=== PATIENT | male | born 1930 | race Caucasian/White ===

== ENCOUNTER 2016-09-03 03:07 | Emergency (ER) | payer MEDICARE ==
[2015-10-26 12:42] VITALS: BMI 27.4
[~2016-09-03 03:07] MED LIST: ANTIVERT50 MG PO; ASPIRIN 81 MG E81 MG PO; ASPIRIN325 MG PO; ATROVENT 0.02%2.5 ML UPD; BAYER CHEWABLE81 MG PO; BISAC-EVAC10 MG/SUPP RC; BUMEX2 MG PO; BYSTOLIC5 MG PO; CARDIZEM120 MG PO; CELEXA10 MG PO; CORDARONE200 MG PO; COREG 3.1253.125 MG PO; COUMADIN2 MG; COUMADIN2.5 MG PO; COUMADIN3 MG PO; COUMADIN4 MG; COUMADIN7.5 MG PO; CYMBALTA60 MG PO; ELAVIL25 MG PO; FERROUS SULFAT325 MG PO; FIBERCON625 MG PO; FISH OIL 1,0001 CA1 PO; FLORANEX / LACT1 TAB PO; FUROSEMIDE20 MG PO; GLUCAGON1 MG/KIT IM; GLUCAGON1 MG/KIT SQ; HUMALOG 30100 UNITS/; HUMALOG 30100 UNITS/ SC; INSTA-GLUCOSE31 GM; ISOSORBIDE MONO30 M1 PO; K-DUR20 MEQ PO; K-TAB10 MEQ PO; KLOR-CON20 MEQ/PKT PO; LANTUS SOL100 UNIT/1; LANTUS SOL100 UNIT/1 SQ; LASIX 40 M40 MG/5 ML IV; LASIX40 MG PO; LIPITOR10 MG PO; LIPITOR20 MG PO; LIPITOR80 MG PO; LISINOPRIL10 MG PO; LOMOTIL TABLET1 TAB PO; LOVENOX30 MG/0.3 SQ; MACRODANTIN100 MG PO; MAXIPIME INJ2 GM IV; MEDI-NATURAL8.6 MG PO; MICRO-K10 MEQ PO; MIRALAX17 GM PO; NORCO 10/325 TA1 TA1 PO; ONDANSETRON4 MG/2 M3 IV; PACERONE100 MG; PERCOCET 10/3251 TA1 PO; PROTONIX40 MG PO; PULMICORT0.5 MG/21 INH; RISPERDAL2 MG PO; SALINE FLUSH10 ML IV; SEROQUEL200 MG PO; SODIUM CL 0.91000 ML IVPB; TYLENOL ARTHRI650 MG PO; ZINC SULFATE 2220 MG PO
[2016-09-03 03:55] LABS: BASOPHILS 0.3 % (0-2); EOSINOPHILS 6.8 % (0-7); HEMATOCRIT 34.2 % (42.0-54.0); HEMOGLOBIN 10.9 g/dL (13.5-17.5); IMMATURE GRANULOCYTES 0.3 % (0-5); MCH 29.2 pg (26.0-34.0); MCHC 31.9 g/dL (31.0-37.0); MCV 91.7 fL (80.0-100.0); MEAN PLATELET VOLUME 9.6 fL (7.4-10.4); MONOCYTES 11.4 % (2-11); NEUTROPHILS 55.2 % (40-80); PLATELET COUNT 170 10x3/uL (130-400); RBC 3.73 10x6/uL (4.20-6.10); RDW 13.4 % (11.5-14.5); WBC 6.6 10x3/uL (4.8-10.8)
[2016-09-03 04:09] LABS: ALBUMIN 3.1 g/dL (3.4-5.0); ALKALINE PHOSPHATASE 97 U/L (46-116); ALT (SGPT) 24 U/L (10-68); CALC OSMOLALITY 278 mosm/kg (275-300); CALCIUM 8.5 mg/dL (8.5-10.1); CARBON DIOXIDE 29.2 mmol/L (21.0-32.0); CHLORIDE - SERUM 100 mmol/L (98-107); CREATININE - SERUM 1.5 mg/dL (0.6-1.3); GLUCOSE 121 mg/dL (74-106); PROTEIN - SERUM 7.4 g/dL (6.4-8.2); SODIUM 136 mmol/L (136-145); UREA NITROGEN 28 mg/dL (7-18); eGFR NON AFRICAN AMERICAN 47 mL/min (90-120)
[2016-09-03 04:20] LABS: CHOL - HDL RATIO 2.7 ratio (2.3-4.9); CHOLESTEROL, TOTAL 118 mg/dL (0-200); CKMB 1.9 U/L (0.0-3.6); CREATINE KINASE 68 UL (21-232); HDL CHOLESTEROL 44 mg/dL (32-96); LDL CHOLESTEROL 65 mg/dL (0-100); LDL-HDL RATIO 1.5 ratio (1.5-3.5); PRO BNP 2394 pg/mL (0-450); TRIGLYCERIDE 48 mg/dL (30-200); TROPONIN-I 0.019 ng/mL (0.000-0.060)
== END 2016-09-03 05:00 | disposition home or self-care (01) ==
LOC: D.ER 03:07
PROVIDERS: Emergency Medicine
DX: I20.8 Other forms of angina pectoris (principal); I25.10 Atherosclerotic heart disease of native coronary artery without angina pectoris; I10 Essential (primary) hypertension; I44.30 Unspecified atrioventricular block; I45.4 Nonspecific intraventricular block

== ENCOUNTER → 2017-02-26 13:50 | Outpatient (CLI) | payer MEDICARE ==
[2015-10-26 12:42] VITALS: BMI 27.4
== END | disposition home or self-care (01) ==
LOC: D.US 13:50
DX: I65.23 Occlusion and stenosis of bilateral carotid arteries (principal)

== ENCOUNTER → 2018-02-16 13:27 | Outpatient (CLI) | payer MEDICARE ==
[2015-10-26 12:42] VITALS: BMI 27.4
== END | disposition home or self-care (01) ==
LOC: D.US 13:27
DX: I65.23 Occlusion and stenosis of bilateral carotid arteries (principal)

== ENCOUNTER 2018-05-14 17:36 | Inpatient (IN) | payer MEDICARE ==
[~2018-05-14] VITALS: Ht 170.2 cm; Wt 78.1 kg
[2018-05-14] VITALS (8 sets, daily range): BP systolic 141–160; BP diastolic 75–88; BMI 28.5
[2018-05-14 18:51] LABS: BASOPHILS 0.4 % (0-2); EOSINOPHILS 3.3 % (0-7); HEMATOCRIT 38.9 % (42.0-54.0); HEMOGLOBIN 13.2 g/dL (13.5-17.5); IMMATURE GRANULOCYTES 0.1 % (0-5); LYMPHOCYTES 17.8 % (15-50); MCHC 33.9 g/dL (31.0-37.0); MCV 91.3 fL (80.0-100.0); MEAN PLATELET VOLUME 10.7 fL (7.4-10.4); MONOCYTES 7.3 % (2-11); NEUTROPHILS 71.1 % (40-80); PLATELET COUNT 174 10x3/uL (130-400); RBC 4.26 10x6/uL (4.20-6.10); RDW 12.7 % (11.5-14.5); WBC 7.4 10x3/uL (4.8-10.8)
[2018-05-14] MEDS ORDERED: LOPRESSOR25 MG PO (18:56)
[2018-05-14] MEDS ORDERED: HYDROCHLOROTHIA25 MG PO (18:57)
[2018-05-14] MEDS ORDERED: LEVOXYL50 MCG PO (18:58)
--- NOTE | 2018-05-14 19:01 | NUR ---
HAND-OFF REPORT GIVEN TO TREY ANTONIO.
[2018-05-14 19:27] LABS: APTT 28.4 SECONDS (22.8-39.4); INR 1.05 (0.85-1.17); PROTIME 13.2 SECONDS (11.6-15.0)
[2018-05-14 19:37] LABS: ALBUMIN 3.5 g/dL (3.4-5.0); ALKALINE PHOSPHATASE 105 U/L (46-116); ALT (SGPT) 28 U/L (10-68); BILIRUBIN - TOTAL 0.66 mg/dL (0.2-1.3); CALC OSMOLALITY 280 mosm/kg (275-300); CALCIUM 8.8 mg/dL (8.5-10.1); CARBON DIOXIDE 26.5 mmol/L (21.0-32.0); CHLORIDE - SERUM 96 mmol/L (98-107); CREATININE - SERUM 1.7 mg/dL (0.6-1.3); POTASSIUM - SERUM 3.9 mmol/L (3.5-5.1); PROTEIN - SERUM 7.9 g/dL (6.4-8.2); SODIUM 135 mmol/L (136-145); UREA NITROGEN 25 mg/dL (7-18); eGFR NON AFRICAN AMERICAN 41 mL/min (90-120)
[2018-05-14 19:38] LABS: GLUCOSE 229 mg/dL (74-106)
[2018-05-14 19:49] LABS: CKMB 3.1 U/L (0.0-3.6); CREATINE KINASE 92 UL (21-232); MAGNESIUM - SERUM 1.6 mg/dL (1.8-2.4); THYROID STIMULATING HORMONE 4.99 uIU/mL (0.36-3.74); TROPONIN-I 0.023 ng/mL (0.000-0.060)
--- NOTE | 2018-05-14 21:32 | NUR ---
PT ARRIVED TO UNIT VIA STRETCHER ACCOMPANIED BY ER STAFF. TRANSFERRED TO BED WITHOUT DIFFICULTY. VERY [place]. BENJIE. AAOX2. CONFUSED ABOUT SITUATION. ORIENTED TO ROOM, NURSE, AND CALL ZUÑIGA SYSTEM. ASSESSMENT COMPLETE. SEE FLOWSHEET FOR DETAILS. BED ALARM ON. ALL OTHER SAFETY MEASURES IN PLACE. CBIR.
--- NOTE | 2018-05-14 23:43 | NUR ---
PT ASLEEP. NO SS OF DISTRESS. NO CHANGES IN CONDITION. REPOSITIONS SELF. SAFETY MEASURES IN PLACE. CBIR.
[2018-05-15] VITALS (24 sets, daily range): BP systolic 134–165; BP diastolic 62–104; Ht 170.2 cm; Wt 78.1 kg
--- NOTE | 2018-05-15 00:59 | NUR ---
REQUESTED URINAL. 150 CC. TOLERATED WELL.
[2018-05-15 03:07] LABS: BASOPHILS 0.2 % (0-2); EOSINOPHILS 0.1 % (0-7); HEMATOCRIT 40.6 % (42.0-54.0); HEMOGLOBIN 13.6 g/dL (13.5-17.5); IMMATURE GRANULOCYTES 0.2 % (0-5); LYMPHOCYTES 5.8 % (15-50); MCH 30.8 pg (26.0-34.0); MCHC 33.5 g/dL (31.0-37.0); MCV 91.9 fL (80.0-100.0); MEAN PLATELET VOLUME 10.3 fL (7.4-10.4); MONOCYTES 0.8 % (2-11); NEUTROPHILS 92.9 % (40-80); PLATELET COUNT 188 10x3/uL (130-400); RBC 4.42 10x6/uL (4.20-6.10); RDW 12.5 % (11.5-14.5)
[2018-05-15 03:20] LABS: WBC 10.4 10x3/uL (4.8-10.8)
--- NOTE | 2018-05-15 03:48 | NUR ---
REASSESSMENT COMPLETE. NO CHANGES NOTED. REPOSITIONS SELF. USES URINAL WITH EASE. ORIENTED X4. PERRLA. SAFETY MEASURES IN PLACE. CBIR.
[2018-05-15 04:08] LABS: ALBUMIN 3.3 g/dL (3.4-5.0); ALKALINE PHOSPHATASE 101 U/L (46-116); ALT (SGPT) 24 U/L (10-68); BILIRUBIN - TOTAL 1.08 mg/dL (0.2-1.3); CALCIUM 8.4 mg/dL (8.5-10.1); CHLORIDE - SERUM 97 mmol/L (98-107); CKMB 2.5 U/L (0.0-3.6); CREATINE KINASE 87 UL (21-232); CREATININE - SERUM 1.7 mg/dL (0.6-1.3); PROTEIN - SERUM 7.4 g/dL (6.4-8.2); SODIUM 134 mmol/L (136-145); UREA NITROGEN 25 mg/dL (7-18); eGFR NON AFRICAN AMERICAN 41 mL/min (90-120)
[2018-05-15 04:11] LABS: CALC OSMOLALITY 282 mosm/kg (275-300); GLUCOSE 297 mg/dL (74-106); POTASSIUM - SERUM 4.7 mmol/L (3.5-5.1)
--- NOTE | 2018-05-15 04:29 | NUR ---
BED ALARMING. PT SITTING UP AND ATTEMPTING TO GET OUT OF BED. SAID "I'M GOING TO GET SOME BREAKFAST". RE-EDUCATED INDUCTION COORDINATION ENGINEER LIGHT AND SAFETY HAZARDS OF GETTING OUT OF BED WITHOUT ASSIST. VERBALIZES UNDERSTANDING.
[2018-05-15 04:42] LABS: TROPONIN-I 0.023 ng/mL (0.000-0.060)
--- NOTE | 2018-05-15 05:45 | NUR ---
PT RECEIVED IN CVICU. WILL MONITOR CLOSELY THROUGHOUT SHIFT.
--- NOTE | 2018-05-15 18:17 | MORECARE ---
CASE MANAGEMENT DISCHARGE SUMMARY PATIENT: DAMIEN KENDALL UNIT: [id number] ADM DATE: 05/14/18 AGE: 88 : 31 SEX: M ROOM/BED: D.[facility] AUTHOR: EMIR PITTS PHYSICIAN: REFERRING PHYSICIAN: FARAZ GARCIA MD DATE OF SERVICE: 05/15/18 Discharge Plan Patient Name: DAMIEN KENDALL [facility] [facility] 1930 Planned Disposition: Anticipated Discharge Date: Discharge Date: Expected LOS: Initial Reviewer: [email or web address] Initial Review Date: 05/14/2018 Generated: 05/15/18 7:16 pm Comments DCP- Discharge Planning Updated by [email or web address]: Karuna Reese on 05/15/18 5:[address] CM attempted to visit with patient regarding discharge planning/ needs. Patient currently confused and no family available. CM will continue to follow and assist as needed with discharge planning / needs Patient Name: DAMIEN KENDALL Page [id number] at 1817 All edits/amendments must be made on the electronic document DICTATION DATE: 05/15/181815 REAL ESTATE INVESTOR: TIMBO 05/15/181815 RPT#: [id number] DC DATE: STATUS: ADM IN [facility] [address] [place] [address] END OF REPORT
--- NOTE | 2018-05-15 20:05 | NUR ---
190 REPORT RECIEVED, CARE ASSUMED. 191 SHIFT ASSESSMENT COMPLETE, PLEASE SEE FLOW SHEETS FOR DETAILS. CONFUSED TO TIME AND SITUATION, REORIENTED. FOLLOWS COMMANDS. HEMODYNAMICALLY STABLE. BED LOW AND LOCKED, ALARM ON. CALL LIGHT IN REACH. WILL CPOC.
--- NOTE | 2018-05-15 21:45 | NUR ---
FULL BED BATH AND LINEN CHANGE ASSISTANCE PROVIDED. PATIENT BATHED SELF WELL. MOVES SELF UP IN BED. BED LOW AND LOCKED, CALL LIGHT IN REACH. ALARM ON. VSS. WILL CONTINUE PLAN OF CARE.
--- NOTE | 2018-05-15 22:34 | NUR ---
1945 ATTEMPTED TO GET OOB, ASSISTED BACK TO BED AND EDUCATION GIVEN ON FALL PRECAUTIONS. THIS HAPPENED AGAIN AT 2029 AND 2099 AND 2119. BED ALARM REMAINS ON, REORIENTING NEEDED. MAINTAINING SAFETY PRECAUTIONS, BED LOW AND LOCKED. WILL CONTINUE PLAN OF CARE.
--- NOTE | 2018-05-15 23:00 | NUR ---
REASSESSMENT COMPLETE, PLEASE SEE FLOW SHEETS FOR DETAILS. NO ACUTE CHANGES FROM PREVIOUS ASSESSMENT TO NOTE. DENIES PAIN/NEEDS. HEMODYNAMICALLY STABLE. BED LOW AND LOCKED, CALL LIGHT IN REACH. WILL CONTINUE PLAN OF CARE.
[2018-05-16] VITALS (25 sets, daily range): BP systolic 122–174; BP diastolic 54–99
--- NOTE | 2018-05-16 01:00 | NUR ---
CONTINUALLY TRYING TO GET OOB, ALARM ON. REORIENTING DONE. HEMODYNAMICALLY STABLE. BED LOW AND LOCKED, CALL LIGHT IN REACH. WILL CONTINUE PLAN OF CARE.
--- NOTE | 2018-05-16 02:43 | NUR ---
TRYING TO GET OOB, REORIENTED. WILL CONTINUE PLAN OF CARE.
--- NOTE | 2018-05-16 02:47 | NUR ---
REASSESSMENT COMPLETE, PLEASE SEE FLOW SHEETS FOR DETAILS. HEMODYNAMICALLY STABLE. BED LOW AND LOCKED, CALL LIGHT IN REACH, ALARM ON. WILL CONTINUE PLAN OF CARE.
--- NOTE | 2018-05-16 05:05 | NUR ---
RESTING QUIETLY IN BED. PERSONAL BELONGINGS IN REACH. DENIES PAIN/NEEDS. HEMODYNAMICALLY STABLE. WILL CONTINUE PLAN OF CARE.
[2018-05-16 05:49] LABS: BASOPHILS 0.1 % (0-2); EOSINOPHILS 0 % (0-7); HEMATOCRIT 36.6 % (42.0-54.0); HEMOGLOBIN 12.2 g/dL (13.5-17.5); IMMATURE GRANULOCYTES 0.3 % (0-5); LYMPHOCYTES 4.6 % (15-50); MCH 30.1 pg (26.0-34.0); MCHC 33.3 g/dL (31.0-37.0); MCV 90.4 fL (80.0-100.0); MEAN PLATELET VOLUME 10.6 fL (7.4-10.4); MONOCYTES 5.7 % (2-11); NEUTROPHILS 89.3 % (40-80); PLATELET COUNT 209 10x3/uL (130-400); RBC 4.05 10x6/uL (4.20-6.10); RDW 12.7 % (11.5-14.5)
[2018-05-16 06:05] LABS: ALBUMIN 3.1 g/dL (3.4-5.0); ANION GAP 18.5 mmol/L (8-16); BILIRUBIN - TOTAL 1.15 mg/dL (0.2-1.3); CALCIUM 8.5 mg/dL (8.5-10.1); CARBON DIOXIDE 21.1 mmol/L (21.0-32.0); CREATININE - SERUM 1.7 mg/dL (0.6-1.3); POTASSIUM - SERUM 4.6 mmol/L (3.5-5.1); PROTEIN - SERUM 7.1 g/dL (6.4-8.2)
[2018-05-16 06:11] LABS: WBC 14.4 10x3/uL (4.8-10.8)
--- NOTE | 2018-05-16 17:05 | NUR ---
1545: UP IN CHAIR. AT BEDSIDE. READING NEWSPAPER. [place]STON CHAIR ALARM IN USE.
--- NOTE | 2018-05-16 18:02 | NUR ---
Back to bed with minimal assistance. Side rails up x 2. Call light within reach. Bed alarm on.
--- NOTE | 2018-05-16 19:00 | NUR ---
REPORT RECIEVED, PATIENT CARE ASSUMED. SHIFT ASSESSMENT COMPLETE, PLEASE SEE FLOW SHEETS FOR DETAILS. CONTROLLED A-FLUTTER NOTED ON CM, HEMODYNAMICALY STABLE. BED LOW AND LOCKED, CALL LIGHT IN REACH, ALARM CHECKED AND ON. WILL CONTINUE PLAN OF CARE.
--- NOTE | 2018-05-16 19:31 | NUR ---
1900 REPORT RECIEVED, PATIENT CARE ASSUMED. SHIFT ASSESSMENT COMPLETE, PLEASE SEE FLOW SHEETS FOR DETAILS. CONTROLLED A-FIB NOTED ON CM. HEMODYNAMICALLY STABLE. BED LOW AND LOCKED, CALL LIGHT IN REACH, ALARM CHECKED AND ON. WILL CONTINUE PLAN OF CARE.
--- NOTE | 2018-05-16 20:51 | NUR ---
TOELRATED PO MEDS WELL. DENIES PAIN/NEEDS. HEMODYNAMICALLY STABLE. BED LOW AND LOCKED, CALL LIGHT IN REACH, ALARM ON. WILL CONTINUE PLAN OF CARE.
--- NOTE | 2018-05-16 22:49 | NUR ---
REASSESSMENT COMPLETE, PLEASE SEE FLOW SHEETS FOR DETAILS. NO ACUTE CHANGES FROM PREVIOUS ASSESSMENT TO NOTE. DENIES PAIN/NEEDS. HEMODYNAMICALLY STABLE, BED LOW AND LOCKED, CALL LIGHT IN REACH, ALARM ON. WILL CONTINUE PLAN OF CARE.
[2018-05-17] VITALS (24 sets, daily range): BP systolic 111–168; BP diastolic 49–88
--- NOTE | 2018-05-17 01:00 | NUR ---
RESTING, HEMODYNAMICALLY STABLE. BED LOW AND LOCKED, ALARM ON, CALL LIGHT IN REACH. CONTINUING PLAN OF CARE.
--- NOTE | 2018-05-17 03:00 | NUR ---
REASSESSMENT COMPLETE, PLEASE SEE FLOW SHEETS FOR DETAILS. NO ACUTE CHANGES FROM PREVIOUS ASSESSMENT TO NOTE. DENIES PAIN/NEEDS. HEMODYNAMICALLY STABLE. BED LOW AND LOCKED, CALL LIGHT IN REACH, ALARM ON. WILL CONTINUE PLAN OF CARE.
--- NOTE | 2018-05-17 05:00 | NUR ---
FULL BED BATH AND LINEN CHANGE AND PROVIDED. PATIENT BATHED SELF EXCEPT FEET AND BACK. TOLERATED WELL. DENIES PAIN/NEEDS. HEMODYNAMICALLY STABLE. BED LOW AND LOCKED, CALL LIGHT IN REACH, ALARM ON. WILL CONTINUE PLAN OF CARE.
[2018-05-17 06:19] LABS: BASOPHILS 0 % (0-2); EOSINOPHILS 0 % (0-7); HEMOGLOBIN 11.9 g/dL (13.5-17.5); IMMATURE GRANULOCYTES 0.4 % (0-5); LYMPHOCYTES 6.4 % (15-50); MCHC 33.1 g/dL (31.0-37.0); MCV 90.7 fL (80.0-100.0); MEAN PLATELET VOLUME 10.4 fL (7.4-10.4); MONOCYTES 4.1 % (2-11); NEUTROPHILS 89.1 % (40-80); PLATELET COUNT 191 10x3/uL (130-400); RBC 3.97 10x6/uL (4.20-6.10); RDW 12.7 % (11.5-14.5)
[2018-05-17 06:33] LABS: ALBUMIN 2.9 g/dL (3.4-5.0); ANION GAP 16.2 mmol/L (8-16); BILIRUBIN - TOTAL 0.86 mg/dL (0.2-1.3); CALCIUM 8.3 mg/dL (8.5-10.1); CREATININE - SERUM 1.4 mg/dL (0.6-1.3); POTASSIUM - SERUM 4.2 mmol/L (3.5-5.1); PROTEIN - SERUM 6.6 g/dL (6.4-8.2)
--- NOTE | 2018-05-17 10:25 | NUR ---
UP TO CHAIR. IV L FOREARM INFILTRATED. SITE DC'D. RE SITED TO R FOREARM WITH 20G ON 1ST ATTEMPT. NS CONNECTED AT 10CC/HR.
--- NOTE | 2018-05-17 13:35 | NUR ---
Rehab Note- Acute Inpatient Prescreen order received. The patient has [facility] insurance and will require a PreAuth prior to an acute inpatient rehab stay. Will begin the PreAuth process. THank you for this referral! John Henson RN CLinical Liaison, [facility] Rehab
--- NOTE | 2018-05-17 14:08 | NUR ---
TO X RAY VIA WHEELCHAIR FOR CT HEAD.
--- NOTE | 2018-05-17 18:36 | NUR ---
SITTING UP IN CHAIR MOST OF AFTERNOON. NO DISTRESS NOTED. HOUSTON ALARM ON IN CHAIR.
--- NOTE | 2018-05-17 21:00 | NUR ---
1900 REPORT RECEIVED CARE ASSUMED. PT SITTING UP IN CHAIR. VSS. ASSESSMENT DONE SEE FLOW SHEET. 2100 MEDS GIVEN PER MAY. NO DIFFICULTY SWALLOWING NOTED.
--- NOTE | 2018-05-17 23:00 | NUR ---
REASSESSMENT DONE SEE FLOW SHEET. VSS. WILL CONTINUE TO MONITOR.
[2018-05-18] VITALS (24 sets, daily range): BP systolic 98–170; BP diastolic 53–95
--- NOTE | 2018-05-18 02:48 | NUR ---
0100 WATER PROVIDED PT VERBALIZES NO COMPLAINTS. 0248 REASSESSMENT DONE SEE FLOW SHEET. VSS.
[2018-05-18 04:50] LABS: BASOPHILS 0 % (0-2); EOSINOPHILS 0 % (0-7); HEMATOCRIT 37.1 % (42.0-54.0); HEMOGLOBIN 12.3 g/dL (13.5-17.5); IMMATURE GRANULOCYTES 0.4 % (0-5); LYMPHOCYTES 10.2 % (15-50); MCH 30.4 pg (26.0-34.0); MCHC 33.2 g/dL (31.0-37.0); MCV 91.6 fL (80.0-100.0); MEAN PLATELET VOLUME 10.2 fL (7.4-10.4); NEUTROPHILS 83.4 % (40-80); PLATELET COUNT 191 10x3/uL (130-400); RBC 4.05 10x6/uL (4.20-6.10); WBC 12.1 10x3/uL (4.8-10.8)
--- NOTE | 2018-05-18 05:00 | NUR ---
PT UP TO CHAIR MODERATE ASSISTANCE REQUIRED. BED STRIPPED WATER PROVIDED.
[2018-05-18 05:20] LABS: BILIRUBIN - TOTAL 0.71 mg/dL (0.2-1.3); CALCIUM 8.1 mg/dL (8.5-10.1); CARBON DIOXIDE 28.3 mmol/L (21.0-32.0); CREATININE - SERUM 1.5 mg/dL (0.6-1.3); POTASSIUM - SERUM 4.3 mmol/L (3.5-5.1); PROTEIN - SERUM 6.6 g/dL (6.4-8.2)
--- NOTE | 2018-05-18 07:43 | NUR ---
SHIFT ASSESSMENT COMPLETE. PT SITTING UP IN CHAIR AT BEDSIDE. BREAKFAST TRAY PROVIDED. DENIES ANY OTHER NEEDS. CALL LIGHT IN REACH.
--- NOTE | 2018-05-18 08:40 | NUR ---
PT ASSISTED UP TO TOILET. HAD BM. RETURNED TO CHAIR
--- NOTE | 2018-05-18 10:05 | NUR ---
DR BLUNT BY TO SEE PT
--- NOTE | 2018-05-18 10:10 | NUR ---
Diabetic diet with 75-100% of meals Pt sleeping now Weight 172lb BG [address] following
--- NOTE | 2018-05-18 12:01 | NUR ---
AT BEDSIDE. PT UP IN CHAIR EATING LUNCH.
--- NOTE | 2018-05-18 17:33 | NUR ---
ATTEMPTED TO REVIEW PT HOME MEDICATIONS AND PHARMACY WITH HIM. HE WAS UNABLE TO LIST MEDICATIONS. SAYS HAS LIST IN [place]. COULD NOT LOCATE [place] IN HIS BELONGINGS. CALLED . SHE HAS [place]. WE REVIEWED ALL PT MEDICATIONS AND LAST DATE TAKEN.
[2018-05-18] MEDS ORDERED: GLUCOPHAGE500 MG PO (17:37)
[2018-05-19] VITALS (18 sets, daily range): BP systolic 136–169; BP diastolic 65–82
[2018-05-19 07:26] LABS: ALBUMIN 3.2 g/dL (3.4-5.0); ANION GAP 12.4 mmol/L (8-16); BILIRUBIN - TOTAL 0.91 mg/dL (0.2-1.3); CALCIUM 8.4 mg/dL (8.5-10.1); CREATININE - SERUM 1.5 mg/dL (0.6-1.3); POTASSIUM - SERUM 4.4 mmol/L (3.5-5.1)
[2018-05-19 07:32] LABS: BASOPHILS 0.1 % (0-2); EOSINOPHILS 0.3 % (0-7); HEMOGLOBIN 13.2 g/dL (13.5-17.5); IMMATURE GRANULOCYTES 0.3 % (0-5); LYMPHOCYTES 13.6 % (15-50); MCH 30.4 pg (26.0-34.0); MCV 92.2 fL (80.0-100.0); MEAN PLATELET VOLUME 10.6 fL (7.4-10.4); MONOCYTES 8.3 % (2-11); NEUTROPHILS 77.4 % (40-80); PLATELET COUNT 198 10x3/uL (130-400); RBC 4.34 10x6/uL (4.20-6.10); RDW 13.2 % (11.5-14.5); WBC 10.6 10x3/uL (4.8-10.8)
--- NOTE | 2018-05-19 09:12 | NUR ---
MORNING MEDICATIONS PROVIDED. 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 RESTING IN CHAIR AT BEDSIDE AT THIS TIME.
--- NOTE | 2018-05-19 10:06 | NUR ---
Rehab Note- THe patient is noted ambulating 500' and was signed off to nursing per PT, the patient is note being seen by OT nor ST and [facility] will deny an acute inpatient rehab stay as the patient has to require 2 therapies per Medicare guidlines for an inpatient acute rehab stay. Spoke with DELILAH Beckman. Thank you for this referral! Reny Henson RN Clinical Liaison, [facility] Rehab
--- NOTE | 2018-05-19 11:10 | NUR ---
ATTEMPTED TO REACH DR HUDSON VIA CELL PHONE. NO ANSWER. VOICE MESSAGE SAYS MAILBOX FULL, CANNOT LEAVE CALL BACK.
--- NOTE | 2018-05-19 12:04 | NUR ---
AT BEDSIDE. PT EATING LUNCH.
--- NOTE | 2018-05-19 13:10 | NUR ---
ATTEMPTED TO REACH DR HUDSON BY HIS CELL. NO ANSWER. UNABLE TO LEAVE VOICEMAIL.
--- NOTE | 2018-05-19 14:03 | NUR ---
CALL DR HUDSON CELL PHONE. NO ANSWER
--- NOTE | 2018-05-19 14:09 | NUR ---
CALL DR HUDSON OFFICE. SPOKE WITH MICHELLE. LEFT MESSAGE TO CALL.
--- NOTE | 2018-05-19 15:44 | MORECARE ---
CASE MANAGEMENT DISCHARGE SUMMARY PATIENT: DAMIEN KENDALL UNIT: [id number] ADM DATE: 05/14/18 AGE: 88 : 31 SEX: M ROOM/BED: D.[facility] AUTHOR: EMIR PITTS PHYSICIAN: REFERRING PHYSICIAN: FARAZ GARCIA MD DATE OF SERVICE: 05/19/18 Discharge Plan Patient Name: DAMIEN KENDALL [facility] : 1930 Planned Disposition: Home Anticipated Discharge Date: Discharge Date: Expected LOS: Initial Reviewer: [email or web address] Initial Review Date: 05/19/2018 Generated: 05/19/18 4:44 pm Comments DCP- Discharge Planning Updated by [email or web address]: Karuna Reese on 05/15/18 4:[address] CM attempted to visit with patient regarding discharge planning/ needs. Patient currently confused and no family available. CM will continue to follow and assist as needed with discharge planning / needs Last DP export: 05/15/18 4:16 pm Patient Name: DAMIEN KENDALL Page [id number] at 1544 All edits/amendments must be made on the electronic document DICTATION DATE: 05/19/181542 SERVICE OFFICER: TIMBO 05/19/181542 RPT#: [id number] DC DATE: STATUS: ADM IN [facility] [address] [place] [address] END OF REPORT
--- NOTE | 2018-05-19 15:51 | MORECARE ---
CASE MANAGEMENT DISCHARGE SUMMARY PATIENT: DAMIEN KENDALL UNIT: [id number] ADM DATE: 05/14/18 AGE: 88 : 31 SEX: M ROOM/BED: D[facility] AUTHOR: EMIR PITTS PHYSICIAN: REFERRING PHYSICIAN: FARAZ GARCIA MD DATE OF SERVICE: 05/19/18 Discharge Plan Patient Name: DAMIEN KENDALL [facility] [facility] 1930 Planned Disposition: Home Anticipated Discharge Date: Discharge Date: Expected LOS: Initial Reviewer: [email or web address] Initial Review Date: 05/19/2018 Generated: 05/19/18 4:51 pm Comments DCP- Discharge Planning Updated by [email or web address]: Karuna Reese on 05/15/18 4:[address] CM attempted to visit with patient regarding discharge planning/ needs. Patient currently confused and no family available. CM will continue to follow and assist as needed with discharge planning / needs DCPIA - Discharge Planning Initial Assessment Updated by [email or web address]: Karuna Reese on 05/19/18 3:50 pm * Is the patient Alert and Oriented? Yes * How many steps to enter\exit or inside your home? * PCP HERNS * Pharmacy [facility] * Preadmission Environment Home with Family * ADLs Independent * Other Equipment ROLLATOR - WALKER, CANE * List name and contact numbers for known caregivers / representatives who currently or will assist patient after discharge: MU KENDALL - [facility] - [phone] * Verbal permission to speak to the caregivers and representatives has been obtained from the patient. Yes * Community resources currently utilized None * Additional services required to return to the preadmission environment? No * Can the patient safely return to the preadmission environment? Yes * Has this patient been hospitalized within the prior 30 days at any hospital? No Last DP export: 05/19/18 2:44 p Patient Name: DAMIEN KENDALL Page [id number] at 1551 All edits/amendments must be made on the electronic document DICTATION DATE: 05/19/18 1550 PICKLE WATER PUMP OPERATOR: TIMBO 05/19/18 6680 RPT#: [id number] DC DATE: STATUS: ADM IN [facility] [address] [place] [address] END OF REPORT
--- NOTE | 2018-05-19 15:58 | MORECARE ---
CASE MANAGEMENT DISCHARGE SUMMARY PATIENT: DAMIEN KENDALL UNIT: [id number] ADM DATE: 05/14/18 AGE: 88 : 31 SEX: M ROOM/BED: D.[facility] AUTHOR: GISSELLE,DOC PHYSICIAN: REFERRING PHYSICIAN: FARAZ GARCIA MD DATE OF SERVICE: 05/19/18 Discharge Plan Patient Name: DAMIEN KENDALL Facility: [facility]:[place] : 1930 Planned Disposition: Home Anticipated Discharge Date: Discharge Date: Expected LOS: Initial Reviewer: [email or web address] Initial Review Date: 05/19/2018 Generated: 05/19/18 4:57 pm Comments DCP- Discharge Planning Updated by [email or web address]: Karuna Reese on 05/19/18 2:[address] Patient Name: DAMIEN KENDALL Admission Status: ER Accout number: [id number] Admission Date: 05-14-2018 : 1930 Admission Diagnosis:TRAUM SUBDR HEM W LOC OF UNSP DURATION, INIT Attending: FARAZ GARCIA Current LOS: 5 Anticipated DC Date: Planned Disposition: Home Primary Insurance: [facility] MEDICARE SOLUTIONS Discharge Planning Comments: CM met with patient at bedside. Patient states he lives at home with is spouse (Bassem Young). He plans on returning to their home upon discharge. He states he feels safe at his home. He states he will have family drive him home upon discharge. He denies any discharge needs at this time. CM will continue to follow and assist as needed with discharge planning / needs. Men'S [employer] Boys' Clothing Salesperson: Karuna Reese DCP- Discharge Planning Updated by [email or web address]: Karuna Reese on 05/15/18 4:[address] CM attempted to visit with patient regarding discharge planning/ needs. Patient currently confused and no family available. CM will continue to follow and assist as needed with discharge planning / needs DCPIA - Discharge Planning Initial Assessment Updated by [email or web address]: Karuna Reese on 05/19/18 3:50 pm * Is the patient Alert and Oriented? Yes * How many steps to enter\exit or inside your home? * PCP HERNS * Pharmacy [facility] * Preadmission Environment Home with Family * ADLs Independent * Other Equipment ROLLATOR - WALKER, CANE * List name and contact numbers for known caregivers / representatives who currently or will assist patient after discharge: BASSEM KENDALL - [facility] - [phone] * Verbal permission to speak to the caregivers and representatives has been obtained from the patient. Yes * Community resources currently utilized None * Additional services required to return to the preadmission environment? No * Can the patient safely return to the preadmission environment? Yes * Has this patient been hospitalized within the prior 30 days at any hospital? No Last DP export: 05/19/18 2:51 p Patient Name: DAMIEN KENDALL Page [phone] at 1558 All edits/amendments must be made on the electronic document DICTATION DATE: 05/19/181556 LEASE OUT MAN: TIMBO 05/19/181556 RPT#: [id number] DC DATE: STATUS: ADM IN [facility] [address] [place] [address] END OF REPORT
--- NOTE | 2018-05-19 16:18 | NUR ---
OT NOTE: PT COMPLETED SIT TO STAND WITH SBA. PT COMPLETED STANDING BALANCE WITH CGA. PT COMPLETED BUE AROM AXS. THANK YOU, BELÉN MENDOZA
--- NOTE | 2018-05-19 17:07 | NUR ---
OT NOTE: PERFORMED VERY WELL TODAY. PERFORMED TRANSFERS WITH CGA; SIMPLE GROOMING TASKS WITH SET UP. MIN ASSIST WITH GOWN. PT AMBULATED GREATER THAN 150 FT WITH RW AND CGA TO IMPROVE FUNCTIONAL ENDURANCE. LIDIA SPARKS, OTR/L
[2018-05-20] VITALS (12 sets, daily range): BP systolic 124–191; BP diastolic 56–106
[2018-05-20 05:28] LABS: BASOPHILS 0.1 % (0-2); EOSINOPHILS 0.8 % (0-7); HEMOGLOBIN 12.4 g/dL (13.5-17.5); IMMATURE GRANULOCYTES 0.4 % (0-5); LYMPHOCYTES 10.5 % (15-50); MCH 30.5 pg (26.0-34.0); MCHC 33.5 g/dL (31.0-37.0); MCV 91.1 fL (80.0-100.0); MEAN PLATELET VOLUME 10.5 fL (7.4-10.4); MONOCYTES 7.1 % (2-11); NEUTROPHILS 81.1 % (40-80); PLATELET COUNT 169 10x3/uL (130-400); RBC 4.06 10x6/uL (4.20-6.10); RDW 13.1 % (11.5-14.5); WBC 10.5 10x3/uL (4.8-10.8)
[2018-05-20 05:48] LABS: ANION GAP 12.5 mmol/L (8-16); BILIRUBIN - TOTAL 0.95 mg/dL (0.2-1.3); CARBON DIOXIDE 26.6 mmol/L (21.0-32.0); CREATININE - SERUM 1.4 mg/dL (0.6-1.3); POTASSIUM - SERUM 4.1 mmol/L (3.5-5.1); PROTEIN - SERUM 6.5 g/dL (6.4-8.2)
--- NOTE | 2018-05-20 06:57 | NUR ---
PATIENT GOT CHOKED WHILE TAKING MED AND H2O. PATIENT COUGHING WAS NOT MOVING AIR AND TURNING BLUE AROUND LIPS AND MOUTH. PATIENT COUGHED HARD AND WAS ABLE TO BREATH AGAIN. PATIENT ALERT AND ORIENTED LAUGHING AT EVERYONE IN ROOM.
--- NOTE | 2018-05-20 07:00 | NUR ---
ASSESSMENT COMPLETE PER FLOWSHEET. NO CO AT TIME.
[2018-05-20] MEDS ORDERED: LISINOPRIL10 MG PO (11:54)
--- NOTE | 2018-05-20 13:24 | NUR ---
DISCHARGE COMPLETE. MEDS REVIEWED WITH PATIENT AND . FOLLOW UP TO DR HUDSON IN 2 WEEKS GIVEN TO BOTH. PT DRESSING HIMSELF. IV DCD WITH CATH INTACT. DISCHARGE WITH GLASSES AND BL HEARING AIDS. VOICES NO QUESTION. LEFT VIA PRIVATE AUTO.
--- NOTE | 2018-05-20 15:10 | MORECARE ---
CASE MANAGEMENT DISCHARGE SUMMARY PATIENT: DAMIEN KENDALL UNIT: [id number] ADM DATE: 05/14/18 AGE: 88 : [birth year] SEX: M ROOM/BED: D[facility] AUTHOR: GISSELLE,DOC PHYSICIAN: REFERRING PHYSICIAN: FARAZ GARCIA MD DATE OF SERVICE: 05/20/18 Discharge Plan Patient Name: DAMIEN KENDALL Facility: [facility]:[place] : 1930 Planned Disposition: Home Anticipated Discharge Date: Discharge Date: 05/20/2018 Expected LOS: Initial Reviewer: [email or web address] Initial Review Date: 05/19/2018 Generated: 05/20/18 4:10 pm Comments DCP- Discharge Planning Updated by [email or web address]: Karuna Reese on 05/19/18 2:[address] Patient Name: DAMIEN KENDALL Admission Status: ER Accout number: [id number] Admission Date: 05-14-2018 : 1930 Admission Diagnosis:TRAUM SUBDR HEM W LOC OF UNSP DURATION, INIT Attending: FARAZ GARCIA Current LOS: 5 Anticipated DC Date: Planned Disposition: Home Primary Insurance: [facility] MEDICARE SOLUTIONS Discharge Planning Comments: CM met with patient at bedside. Patient states he lives at home with is spouse (Bassem Young). He plans on returning to their home upon discharge. He states he feels safe at his home. He states he will have family drive him home upon discharge. He denies any discharge needs at this time. CM will continue to follow and assist as needed with discharge planning / needs. Cloth Shrinker: Karuna Reese DCP- Discharge Planning Updated by [id number]: Karuna Reese on 05/15/18 4:[address] CM attempted to visit with patient regarding discharge planning/ needs. Patient currently confused and no family available. CM will continue to follow and assist as needed with discharge planning / needs DCPIA - Discharge Planning Initial Assessment Updated by [id number]: Karuna Reese on 05/19/18 3:50 pm * Is the patient Alert and Oriented? Yes * How many steps to enter\exit or inside your home? * PCP HERNS * Pharmacy [facility] * Preadmission Environment Home with Family * ADLs Independent * Other Equipment ROLLATOR - WALKER, CANE * List name and contact numbers for known caregivers / representatives who currently or will assist patient after discharge: BASSEM KENDALL - [facility] - [phone] * Verbal permission to speak to the caregivers and representatives has been obtained from the patient. Yes * Community resources currently utilized None * Additional services required to return to the preadmission environment? No * Can the patient safely return to the preadmission environment? Yes * Has this patient been hospitalized within the prior 30 days at any hospital? No Coverage Notice Reviewer: [email or web address] Maulik Reese Notice Issued Date-Time: 05/20/2018 12:06 Notice Type: IM Discharge Notice Notice Delivered To: Patient Relationship to Patient: Self [place] Administrator Name: Delivery Method: HAND - Hand Delivered Qian Days: Prior Verbal Notification: Recipient Understood Notice: Yes Recipient Signature: Yes Med Rec Note Co-signed by Attending: Coverage Notice Comment: Last DP export: 05/19/18 2:57 p Patient Name: DAMIEN KENDALL Page [phone] at 1510 All edits/amendments must be made on the electronic document DICTATION DATE: 05/20/18 1509 REGIONAL EDUCATION COORDINATOR: TIMBO 05/20/18 1509 RPT#: [id number] DC DATE:05/20/18 STATUS: DIS IN [facility] [address] [place] [address] END OF REPORT
== END 2018-05-20 13:29 | disposition home or self-care (01) | DRG 83 ==
LOC: D.ER 17:36 → D.CVICU 19:22 → D.EDHOLD 19:22 → D.ICU 19:41 → D.CVICU 05-15 05:42
PROVIDERS: Family Medicine; ADMIT Emergency Medicine; ATTEND Emergency Medicine
DX: S06.5X9A Traumatic subdural hemorrhage with loss of consciousness of unspecified duration, initial encounter (principal); I48.92 Unspecified atrial flutter; N17.9 Acute kidney failure, unspecified; I10 Essential (primary) hypertension; Z95.1 Presence of aortocoronary bypass graft; W19.XXXA Unspecified fall, initial encounter; G47.33 Obstructive sleep apnea (adult) (pediatric); E78.5 Hyperlipidemia, unspecified; D50.9 Iron deficiency anemia, unspecified; I48.0 Paroxysmal atrial fibrillation; I25.10 Atherosclerotic heart disease of native coronary artery without angina pectoris; S06.6X0A Traumatic subarachnoid hemorrhage without loss of consciousness, initial encounter; E11.9 Type 2 diabetes mellitus without complications; R55 Syncope and collapse

== ENCOUNTER 2018-12-03 04:28 | Inpatient (IN) | payer MEDICARE ==
[~2018-12-03] VITALS: Ht 170.2 cm; Wt 74.8 kg
[~2018-12-03 04:28] MED LIST changes: +GLUCOPHAGE500 MG PO; +HYDROCHLOROTHIA25 MG PO; +LEVOXYL50 MCG PO; +LOPRESSOR25 MG PO
[2018-12-03 05:35] LABS: BASOPHILS 0.3 % (0-2); EOSINOPHILS 4.7 % (0-7); HEMATOCRIT 31.5 % (42.0-54.0); HEMOGLOBIN 10.9 g/dL (13.5-17.5); IMMATURE GRANULOCYTES 0.3 % (0-5); LYMPHOCYTES 9.8 % (15-50); MCH 30.7 pg (26.0-34.0); MCHC 34.6 g/dL (31.0-37.0); MCV 88.7 fL (80.0-100.0); MEAN PLATELET VOLUME 10.5 fL (7.4-10.4); MONOCYTES 8.3 % (2-11); NEUTROPHILS 76.6 % (40-80); PLATELET COUNT 165 10x3/uL (130-400); RBC 3.55 10x6/uL (4.20-6.10); RDW 14.1 % (11.5-14.5); WBC 11.7 10x3/uL (4.8-10.8)
[2018-12-03 05:38] LABS: APTT 32.1 SECONDS (22.8-39.4); INR 1.2 (0.85-1.17); PROTIME 14.7 SECONDS (11.6-15.0)
[2018-12-03 05:39] LABS: ALKALINE PHOSPHATASE 487 U/L (46-116); ALT (SGPT) 45 U/L (10-68); BILIRUBIN - TOTAL 2.33 mg/dL (0.2-1.3); CALC OSMOLALITY 284 mosm/kg (275-300); CALCIUM 9.3 mg/dL (8.5-10.1); CHLORIDE - SERUM 95 mmol/L (98-107); CREATININE - SERUM 1.8 mg/dL (0.6-1.3); GLUCOSE 154 mg/dL (74-106); POTASSIUM - SERUM 4.3 mmol/L (3.5-5.1); PROTEIN - SERUM 7.1 g/dL (6.4-8.2); SODIUM 133 mmol/L (136-145); UREA NITROGEN 58 mg/dL (7-18); eGFR NON AFRICAN AMERICAN 38 mL/min (90-120)
[2018-12-03 05:51] LABS: CKMB 2.4 U/L (0.0-3.6); CREATINE KINASE 83 UL (21-232); PRO BNP 4707 pg/mL (0-450); THYROID STIMULATING HORMONE 4.33 uIU/mL (0.36-3.74)
[2018-12-03 05:54] LABS: TROPONIN-I 0.017 ng/mL (0.000-0.060)
--- NOTE | 2018-12-03 07:58 | NUR ---
PT RESTING IN BED. BROUGHT PT URINAL. PLACED PT ON TELE-88 CONTROL AFIB BBB. NO S/S OF ACUTE DISTRESS. CL IN PLACE.
[2018-12-03 08:33] VITALS: BP 133/70; BMI 25.9
[2018-12-03 08:43] VITALS: BP 164/88
[2018-12-03 12:13] VITALS: BMI 25.8
[2018-12-03 13:12] VITALS: BP 165/90
[2018-12-03 14:52] LABS: % SATURATION 22 % (15-55); IRON 55 ug/dl (35-150); TOTAL IRON BIND CAPACITY 246 ug/dl (260-445); UNSAT IRON BIND CAPACITY 191 ug/dl (150-375)
[2018-12-03 15:43] VITALS: BP 163/87
--- NOTE | 2018-12-03 18:02 | NUR ---
PT RESTING IN BED. [place]. NO S/S OF ACUTE DISTRESS. CL IN PLACE.
--- NOTE | 2018-12-03 20:10 | NUR ---
RESTING QUIELTY WITH NO DISTRESS NOTED. RESP EVEN AND UNALBORED. O2 @ 2L PER NC ON. IV TO LEFT ARM INTACT WITHOUT REDNESS OR EDEMA NOTED. NO COMPALITNS OV NAUSEA. CL IN REACH
[2018-12-03 21:08] VITALS: BP 165/86
[2018-12-04] VITALS (11 sets, daily range): BP systolic 112–148; BP diastolic 59–83
--- NOTE | 2018-12-04 02:35 | NUR ---
I have reviewed this patient and I concur with the Shift Assessment completed by the Licensed Practical Nurse today this shift.
[2018-12-04 07:27] LABS: BASOPHILS 0.3 % (0-2); EOSINOPHILS 3.1 % (0-7); HEMATOCRIT 36.3 % (42.0-54.0); IMMATURE GRANULOCYTES 0.3 % (0-5); LYMPHOCYTES 9.9 % (15-50); MCH 30.8 pg (26.0-34.0); MCHC 33.1 g/dL (31.0-37.0); MEAN PLATELET VOLUME 11.7 fL (7.4-10.4); MONOCYTES 10.4 % (2-11); RDW 14.8 % (11.5-14.5)
[2018-12-04 07:28] LABS: MCV 93.1 fL (80.0-100.0); PLATELET COUNT 226 10x3/uL (130-400); WBC 15.3 10x3/uL (4.8-10.8)
[2018-12-04 07:35] LABS: ANION GAP 13.5 mmol/L (8-16); CALCIUM 9.9 mg/dL (8.5-10.1); CARBON DIOXIDE 31.2 mmol/L (21.0-32.0); CREATININE - SERUM 1.8 mg/dL (0.6-1.3); POTASSIUM - SERUM 4.7 mmol/L (3.5-5.1)
--- NOTE | 2018-12-04 07:35 | NUR ---
PT RESTING IN BED. NO ACUTE DISTRESS NOTED. O2 @ 2L NC IN PLACE. CURRENTLY RECEIVING PRESCRIBED BREATHIG TREATMENT. PT NPO AND UNDERSTANDS REASONING FOR NPO STATUS FOR UPCOMING PROCEDURE. DENIES PAIN AT THIS TIME. SALINE LOC TO RIGHT FOREARM, SITE WITHOUT REDNESS OR EDEMA. IV TO LEFT WRIST WITH ZOFRAN @ 4.7ML/HR INFUSING VIA PUMP. SITE WITHOUT REDNESS OR EDEMA. PT DENIES FURTHER NEEDS AT THIS TIME. CL WITHIN REACH ENCOURAGED TO CALL WITH NEEDS. CONTINUE POC
[2018-12-04 08:02] LABS: APTT 30.6 SECONDS (22.8-39.4); INR 1.21 (0.85-1.17); PROTIME 14.8 SECONDS (11.6-15.0)
--- NOTE | 2018-12-04 12:08 | EC ---
PATIENT:DAMIEN KENDALL DATE OF SERVICE: 12/03/18 SEX: M MEDICAL RECORD: [id number] DATE OF : [birth year] LOCATION:D.[facility] AGE OF PATIENT: 88 ADMISSION DATE: 12/03/18 REFERRING PHYSICIAN: INTERPRETING PHYSICIAN: LOCO NICOLAS MD ECHOCARDIOGRAM REPORT ECHO CHARGES 4 ECHO COMPLETE Date: 12/03/18 CLINICAL DIAGNOSIS: CHF - H/O AVR ECHOCARDIOGRAPHIC MEASUREMENTS (adult normal given) AC root (d.<3.7cm) 3.0 cm LV Septum d (<1.2 cm> 1.8 cm Valve Excursion 1.1 cm LV Septum (systole) 2.4 cm Left Atria (s.<4.0cm> 4.7 cm LVPW d(<1.2cm) 1.6 cm RV (d.<2.3cm) 3.0 cm LVPW (sytole) 2.5 cm LV diastole(<5.6CM) 4.1 cm MV E-F(>70mm/sec) cm LV systole 2.4 cm LVOT Diameter 2.0 cm MV exc.(>10mm) cm Est.ejection fraction (50-75%) % DOPPLER: LVIT cm/sec A 40.0 cm/sec E 90.0 cm/sec LA cm/sec RVSP 49.0 mmHg LVOT 81.0 cm/sec AOP1/2T m/s Asc. Ao 258 cm/sec RVOT 85.0 cm/sec RA cm/sec PA 98.0 cm/sec AV Gradient Peak 27.0 mmHg AV Mean 17.0 mmHg AV Area 0.7 cm MV Gradient Peak 5.7 mmHg MV Mean 1.9 mmHg MV Area cm COMMENTS: Trust Advisor: Zainab SHUKLAOE Brake Operator: 1 Dr. Nicolas TAPE# PACS Pericardial Effusion N DATE OF SERVICE: PROCEDURE: Echocardiogram. FINDINGS: 1. Left ventricular chamber size is mildly dilated. Left ventricular systolic function is moderately reduced at 30%. 2. Left atrium is enlarged at 4.7 cm. Right atrium and right ventricular chamber sizes are as well infw-ht-hccravvumi dilated. 3. 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 The valve area does calculate to 0.7 cm-squared with a gradient of 27 mm across the valve. The remaining valvular structures have normal structure and motion. 4. Doppler interrogation elsewise reveals mild mitral regurgitation, moderate tricuspid regurgitation, no other valvular insufficiency or stenosis. Pulmonary systolic pressure is estimated 49 mmHg. 5. No evidence of pericardial effusion or left ventricular thrombus. TRANSINT:[id number] Voice Confirmation ID: [id number] DOCUMENT ID: [id number] LOCO NICOLAS MD at 1208 CC: [id number] DICTATION DATE: 12/03/18 1234 SCREW MACHINE SET UP OPERATOR: 12/03/18 1242 ADM IN [facility] [address] [place] [id number]
--- NOTE | 2018-12-04 15:38 | NUR ---
PT TAKEN TO IR VIA BED FOR PROCEDURE. NO ACUTE DISTRESS NOTED
--- NOTE | 2018-12-04 18:35 | NUR ---
UA OBTAINED AND TAKEN TO LAB
[2018-12-04 18:51] LABS: APPEARANCE CLEAR (CLEAR); BILIRUBIN NEGATIVE (NEGATIVE); COLOR YELLOW (YELLOW); GLUCOSE NEGATIVE (NEGATIVE); KETONE NEGATIVE (NEGATIVE); NITRITE NEGATIVE (NEGATIVE); PROTEIN NEGATIVE (NEGATIVE); SPECIFIC GRAVITY 1.015 (1.005-1.020); UROBILINOGEN NORMAL (NORMAL)
--- NOTE | 2018-12-04 19:15 | NUR ---
RECEIVED CARE FROM DAY NURSE. LYING IN BED ON SIDE. EYES CLOSED. RESP EVEN AND UNLABORED. CALL LIGHT AT SIDE.
--- NOTE | 2018-12-05 02:37 | NUR ---
I have reviewed this patient and I concur with the Shift Assessment completed by the Licensed Practical Nurse today this shift.
[2018-12-05 04:00] VITALS: BP 162/79
[2018-12-05] MEDS ORDERED: ISOSORBIDE MONO30 M1 PO (04:35)
[2018-12-05 06:36] LABS: ANION GAP 14.1 mmol/L (8-16); CALCIUM 9.8 mg/dL (8.5-10.1); CARBON DIOXIDE 29.7 mmol/L (21.0-32.0); CREATININE - SERUM 2.1 mg/dL (0.6-1.3); POTASSIUM - SERUM 4.8 mmol/L (3.5-5.1)
[2018-12-05 07:03] LABS: BASOPHILS 0.4 % (0-2); EOSINOPHILS 5.2 % (0-7); HEMATOCRIT 36.4 % (42.0-54.0); IMMATURE GRANULOCYTES 0.2 % (0-5); LYMPHOCYTES 8.4 % (15-50); MCH 30.5 pg (26.0-34.0); MCV 92.6 fL (80.0-100.0); MEAN PLATELET VOLUME 11.1 fL (7.4-10.4); MONOCYTES 8.7 % (2-11); NEUTROPHILS 77.1 % (40-80); PLATELET COUNT 203 10x3/uL (130-400); RBC 3.93 10x6/uL (4.20-6.10); RDW 14.5 % (11.5-14.5); WBC 13.9 10x3/uL (4.8-10.8)
--- NOTE | 2018-12-05 07:10 | NUR ---
ALERT AND ORIENTED, RESTING IN BED. VERY [place], HEARING AIDS BILATERAL EARS. STRICT I&O. INCONTINENT AT TIMES. NO C/O PAIN. NO S/S OF ACUTE DISTRESS NOTED. UP WITH PHYSICAL THERAPY. ON 2L O2, NC. IV TO RIGHT FOREARM, SL; IV TO LEFT WRIST, NS INFUSING @ 10ML/HR. SITES PATENT WITHOUT REDNESS OR SWELLING. ON TELEMETRY, 86 CONTROLLED AFIB WITH BBB. PT ACHS. PT DENIES ANY NEEDS AT THIS TIME. CALL LIGHT IN REACH. WILL CONTINUE TO MONITOR.
[2018-12-05 09:47] VITALS: BP 114/74
--- NOTE | 2018-12-05 11:59 | NUR ---
pt lying in bed resp even and unlabored at bedside at this time. srx2 bed at lowest setting call light within reach will continue to monitor
--- NOTE | 2018-12-05 12:01 | NUR ---
pt sitting in bed resp even and unlabored pt denies needs at this time. will continue to monitor
[2018-12-05 13:39] VITALS: BP 116/75
[2018-12-05 17:00] VITALS: BP 147/76
--- NOTE | 2018-12-05 18:23 | NUR ---
ALERT AND ORIENTED, RESTING IN BED. NO C/O PAIN. NO S/S OF ACUTE DISTRESS NOTED. PT DENIES ANY NEEDS AT THIS TIME. CALL LIGHT IN REACH.
--- NOTE | 2018-12-05 19:15 | NUR ---
RECEIVED CARE FROM DAY NURSE. LYING IN BED. CALL LIGHT AT SIDE. IV SL TO RIGHT FA AND LEFT WRIST. NO NEEDS VOICED AT THIS TIME.
[2018-12-05 20:45] VITALS: BP 162/75
[2018-12-06 00:46] VITALS: BP 168/87
--- NOTE | 2018-12-06 02:26 | NUR ---
I have reviewed this patient and I concur with the Shift Assessment completed by the Licensed Practical Nurse today this shift.
[2018-12-06 04:53] LABS: BASOPHILS 0.3 % (0-2); EOSINOPHILS 4.7 % (0-7); HEMATOCRIT 33.9 % (42.0-54.0); HEMOGLOBIN 11.3 g/dL (13.5-17.5); IMMATURE GRANULOCYTES 0.4 % (0-5); LYMPHOCYTES 8.5 % (15-50); MCH 30.8 pg (26.0-34.0); MCHC 33.3 g/dL (31.0-37.0); MCV 92.4 fL (80.0-100.0); MEAN PLATELET VOLUME 10.3 fL (7.4-10.4); NEUTROPHILS 77.1 % (40-80); PLATELET COUNT 181 10x3/uL (130-400); RBC 3.67 10x6/uL (4.20-6.10); RDW 14.5 % (11.5-14.5); WBC 12.4 10x3/uL (4.8-10.8)
[2018-12-06 05:04] LABS: ANION GAP 14.6 mmol/L (8-16); CALCIUM 9.3 mg/dL (8.5-10.1); CARBON DIOXIDE 28.9 mmol/L (21.0-32.0); CREATININE - SERUM 2.3 mg/dL (0.6-1.3); POTASSIUM - SERUM 4.5 mmol/L (3.5-5.1)
[2018-12-06 05:10] VITALS: BP 153/66
[2018-12-06 09:36] VITALS: BP 134/60
[2018-12-06 12:34] VITALS: BP 148/82
--- NOTE | 2018-12-06 13:49 | NUR ---
REC'D PT LYING IN BED RESP EVEN AND UNLABORED LUNG SOUNDS CLEAR PT DENIES NEEDS AT THIS TIME. IV TO RIGHT FOREARM PATENT AND INTACT AT THIS TIME. SRX2 BED AT LOWEST SETTING WITH CALL LIGHT IN REACH WILL CONTINUE TO MONITOR
[2018-12-06 16:47] VITALS: BP 126/48
[2018-12-06 20:56] VITALS: BP 183/93
[2018-12-07 01:48] VITALS: BP 160/74
[2018-12-07 05:24] VITALS: BP 167/94
[2018-12-07 05:52] LABS: ANION GAP 13.3 mmol/L (8-16); CALCIUM 9.4 mg/dL (8.5-10.1); CARBON DIOXIDE 28.6 mmol/L (21.0-32.0); POTASSIUM - SERUM 4.9 mmol/L (3.5-5.1)
[2018-12-07 05:59] LABS: BASOPHILS 0.3 % (0-2); HEMATOCRIT 37.5 % (42.0-54.0); HEMOGLOBIN 12.5 g/dL (13.5-17.5); IMMATURE GRANULOCYTES 0.3 % (0-5); MCH 30.5 pg (26.0-34.0); MCHC 33.3 g/dL (31.0-37.0); MCV 91.5 fL (80.0-100.0); MEAN PLATELET VOLUME 11.3 fL (7.4-10.4); MONOCYTES 9.7 % (2-11); NEUTROPHILS 74.7 % (40-80); PLATELET COUNT 178 10x3/uL (130-400); RDW 14.4 % (11.5-14.5); WBC 14.4 10x3/uL (4.8-10.8)
--- NOTE | 2018-12-07 07:30 | NUR ---
PATIENT SITTING UP IN CHAIR WITH FALL PRECAUTIONS ON. CL IN REACH. NO NEEDS AT THIS TIME. WCTM
[2018-12-07 07:59] VITALS: BP 141/77
[2018-12-07 09:08] LABS: CA 19-9 Note: U/mL (0-35)
--- NOTE | 2018-12-07 09:51 | NUR ---
PATIENT IN BED LAYING ON RIGHT SIDE. MEDS GIVEN. PATIENT CO OF NEED TO HAVE A BM. GAVE MIRALAX MIXED WITH PRUNE AND APPLE JUICE. CL IN REACH. NO NEEDS AT THIS TIME.
--- NOTE | 2018-12-07 15:44 | MORECARE ---
CASE MANAGEMENT DISCHARGE SUMMARY PATIENT: DAMIEN KENDALL UNIT: [id number] ADM DATE: 12/03/18 AGE: 88 : 31 SEX: M ROOM/BED: D.2236 AUTHOR: EMIR PITTS PHYSICIAN: REFERRING PHYSICIAN: JAIRO BLUNT MD DATE OF SERVICE: 12/07/18 Discharge Plan Patient Name: DAMIEN KENDALL Facility: [facility]:[place] : 1930 Planned Disposition: Anticipated Discharge Date: Discharge Date: Expected LOS: Initial Reviewer: [email or web address] Initial Review Date: 12/07/2018 Generated: 12/07/18 4:43 pm Comments DCP- Discharge Planning Updated by [id number]: Sarah Wong on 12/07/18 2:[address] Patient Name: DAMIEN KENDALL Admission Status: ER Accout number: [id number] Admission Date: 12-03-2018 : 1930 Admission Diagnosis:SHORTNESS OF BREATH Attending: JAIRO BLUNT Current LOS: 4 Anticipated DC Date: Planned Disposition: Primary Insurance: [facility] MEDICARE SOLUTIONS Discharge Planning Comments: CM met with patient to discuss discharge planning, he is alone in the room. He states that he lives with his in a one story home. He states that he does not have any medical equipment. He denies having home health services. He states it is ok to call his for discharge plan. He states "I think we are looking at going to [facility]. I attempted to call his at [phone] and left a message for her to return my call. CM will continue to follow and assist with discharge planning/needs. Sheet Roller Operator: Sarah Wong DCP- Discharge Planning Updated by [id number]: Sarah Wong on 12/04/18 3:[address] Received fax of denial being overturned. Patient Name: DAMIEN KENDALL Page [id number] at 7708 All edits/amendments must be made on the electronic document DICTATION DATE: 12/07/18 1543 LINE DIRECTOR: TIMBO 12/07/18 1543 RPT#: [id number] DC DATE: STATUS: ADM IN [facility] [address] [place] [address] END OF REPORT
[2018-12-07 15:55] VITALS: BP 164/58
--- NOTE | 2018-12-07 20:21 | NUR ---
REC'D.IN BED WATCHING TV. DENIES ANY CHEST PAIN OR SOB AT PRESENT TIME.02 2L NC.MONITOR READING ATRIAL FLUTTER RATE OF 99. [place] MAT IN PLACE FOR SAFETY. WILL CONTINUE TO MONITOR FOR ANY CHGES AND FOLLOW CURRENT PLAN OF CARE
[2018-12-07 22:28] VITALS: BP 110/60
[2018-12-08] VITALS (24 sets, daily range): BP systolic 61–140; BP diastolic 25–84
--- NOTE | 2018-12-08 05:00 | NUR ---
REC'D TO ICU 2300 POST CODE. ICU MONITORS ESTAB. TO VENTILATOR VIA OETT PER RT WITH NEW ORDERS FROM DR. KHALIL REC'D. ALARMS ON.
--- NOTE | 2018-12-08 05:25 | NUR ---
SPOKE WITH OVER PHONE. UPDATED ON PT CONDITION. SHE SAID "DONT DO ANYMORE".. I VERIFIED DNR STATUS. SHE SAID SHE WOULD BE UP HERE THIS MORNING SOON SHE COULD.
[2018-12-08 05:30] LABS: CALCIUM 9.1 mg/dL (8.5-10.1)
[2018-12-08 05:34] LABS: HEMATOCRIT 32.8 % (42.0-54.0); RBC 3.22 10x6/uL (4.20-6.10)
[2018-12-08 05:35] LABS: MCH 31.1 pg (26.0-34.0); MCHC 30.5 g/dL (31.0-37.0); MCV 101.9 fL (80.0-100.0); MEAN PLATELET VOLUME 11.2 fL (7.4-10.4); PLATELET COUNT 173 10x3/uL (130-400); RDW 15.6 % (11.5-14.5)
[2018-12-08 05:37] LABS: CREATININE - SERUM 3.3 mg/dL (0.6-1.3)
[2018-12-08 05:38] LABS: ANION GAP 28.7 mmol/L (8-16); CARBON DIOXIDE 19.2 mmol/L (21.0-32.0); POTASSIUM - SERUM 6.9 mmol/L (3.5-5.1)
--- NOTE | 2018-12-08 05:45 | NUR ---
PT INCONT OF STOOL. COMPLETE CHG BATH AND LINEN CHANGE DONE. HICKS CATH PLACED PER ORDER - NO DIFFICULTY, SCANT FLOWER URINE RETURNED.
--- NOTE | 2018-12-08 06:25 | NUR ---
Vikas DESIRN NOTIFIED OF CRITICAL K+ LEVEL AND SBP 70S. NEW ORDERS REC'D.
[2018-12-08 07:15] LABS: EOSINOPHILS 1 % (0-7); LYMPHOCYTES 13 % (15-50); MONOCYTES 7 % (2-11); NEUTROPHILS 71 % (40-80)
[2018-12-08 07:16] LABS: PLATELET ESTIMATE NORMAL
--- NOTE | 2018-12-08 07:19 | NUR ---
MANUFACTURING SUPERVISOR RNISAK, CALLED DR DELGADO FOR CONSULT.
--- NOTE | 2018-12-08 07:20 | NUR ---
REPORT RECEIVED. PT WAS CODED AND BROUGHT TO ICU THIS AM. PT IS DNR. ON VENT. SETTINGS PER RT. PT HAS HICKS AND HAS 2 PIVS WITH BICARB AND LEVOPHED INFUSING. PT HAS MOTTLED SKIN AND WEAK PULSES. HEAD TO TOE ASSESSMENT COMPLETE.
--- NOTE | 2018-12-08 07:33 | NUR ---
DR. VARGAS NOTIFIED OF PT CODE AND STATUS REPORT GIVEN.
--- NOTE | 2018-12-08 08:00 | NUR ---
AT BEDSIDE. STATED THAT SHE DIDN'T WANT HER TO STAY INTUBATED.
--- NOTE | 2018-12-08 08:47 | NUR ---
SPOKE WITH DR DELGADO ABOUT TERMINAL EXTUBATION. PAGED ATTENDING DOCTOR TO SEE IF HE WANTS TO ROUND ON PT 1ST. WILL MONITOR.
--- NOTE | 2018-12-08 08:50 | NUR ---
DR AMARO ON UNIT. SPOKE WITH HIM REGARDING PT'S STATUS. STATED HE WAS GOING TO LOOK AT THE CHART THEN GO SPEAK TO THE . WILL CONTINUE TO MONITOR.
--- NOTE | 2018-12-08 09:40 | NUR ---
MORPHINE GIVEN IN PREPARATION OF TERMINALLY EXTUBATING. AT BEDSIDE.
--- NOTE | 2018-12-08 10:17 | NUR ---
PT EXTUBATED. BROUGHT BACK IN ROOM. HEART RATE 23.
--- NOTE | 2018-12-08 10:24 | NUR ---
PT IN ASYSTOLE. DR AMARO ON WAY TO PRONOUNCE.
--- NOTE | 2018-12-08 10:31 | NUR ---
DR AMARO PRONOUNCED PT AT 1030. SUSHMA CALLED AT THIS TIME.
--- NOTE | 2018-12-08 10:36 | NUR ---
MITA STATES NOT A CANDIDATE D/T AGE AND CANCER. CALLING [facility] AT THIS TIME. GABRIELLA IN [place].
--- NOTE | 2018-12-08 11:06 | NUR ---
POST MORTEM CARE PROVIDED.
--- NOTE | 2018-12-08 11:32 | NUR ---
HOME HERE TO GROUNDS CLEANER PT. SIGNED PAPERWORK.
--- NOTE | 2018-12-08 11:32 | MORECARE ---
CASE MANAGEMENT DISCHARGE SUMMARY PATIENT: DAMIEN KENDALL UNIT: [id number] ADM DATE: 12/03/18 AGE: 88 : 31 SEX: M ROOM/BED: D.2301 AUTHOR: EMIR PITTS PHYSICIAN: REFERRING PHYSICIAN: JAIRO BLUNT MD DATE OF SERVICE: 12/08/18 Discharge Plan Patient Name: DAMIEN KENDALL Facility: [facility]:[place] : 1930 Planned Disposition: Anticipated Discharge Date: Discharge Date: Expected LOS: Initial Reviewer: [id number] Initial Review Date: 12/07/2018 Generated: 12/08/18 12:32 pm Comments DCP- Discharge Planning Updated by [email or web address]: Sarah Wong on 12/07/18 2:[address] Patient Name: DAMIEN KENDALL Admission Status: ER Accout number: [id number] Admission Date: 12-03-2018 : 1930 Admission Diagnosis:SHORTNESS OF BREATH Attending: JAIRO BLUNT Current LOS: 4 Anticipated DC Date: Planned Disposition: Primary Insurance: [facility] MEDICARE SOLUTIONS Discharge Planning Comments: CM met with patient to discuss discharge planning, he is alone in the room. He states that he lives with his in a one story home. He states that he does not have any medical equipment. He denies having home health services. He states it is ok to call his for discharge plan. He states "I think we are looking at going to [facility]. I attempted to call his at [phone] and left a message for her to return my call. CM will continue to follow and assist with discharge planning/needs. Cover Seamer: Sarah Wong DCP- Discharge Planning Updated by [email or web address]: Sarah Wong on 12/04/18 3:[address] Received fax of denial being overturned. Last DP export: 12/07/18 2:44 p Patient Name: DAMIEN KENDALL Page [phone] at 1132 All edits/amendments must be made on the electronic document DICTATION DATE: 12/08/18 1132 CAMPAIGN MANAGEMENT SENIOR MANAGER: TIMBO 12/08/18 1132 RPT#: [id number] DC DATE: STATUS: ADM IN [facility] [address] [place] [address] END OF REPORT
[2018-12-09 17:14] VITALS: Ht 170.2 cm; Wt 74.8 kg
== END 2018-12-08 11:43 | DRG 291 ==
LOC: D.ER 04:28 → D.MS 05:44 → D.ICU 05:44 → D.SDCHOLD 07:49 → D.MS 07:49 → D.ICU 12-08 05:09
PROVIDERS: Emergency Medicine; Internal Medicine Hematology & Oncology; Specialist; ADMIT Internal Medicine Nephrology; ATTEND Internal Medicine Nephrology
PROC: 0FB03ZX Excision of Liver, Percutaneous Approach, Diagnostic (ICD-10-PCS; 2018-12-04)
PROC: 5A12012 Performance of Cardiac Output, Single, Manual (ICD-10-PCS; principal; 2018-12-08)
PROC: 0BH17EZ Insertion of Endotracheal Airway into Trachea, Via Natural or Artificial Opening (ICD-10-PCS; 2018-12-08)
PROC: 5A1935Z Respiratory Ventilation, Less than 24 Consecutive Hours (ICD-10-PCS; 2018-12-08)
DX: I13.0 Hypertensive heart and chronic kidney disease with heart failure and stage 1 through stage 4 chronic kidney disease, or unspecified chronic kidney disease (principal); J96.01 Acute respiratory failure with hypoxia; I50.20 Unspecified systolic (congestive) heart failure; C78.7 Secondary malignant neoplasm of liver and intrahepatic bile duct; N17.9 Acute kidney failure, unspecified; J98.11 Atelectasis; G93.1 Anoxic brain damage, not elsewhere classified; C25.9 Malignant neoplasm of pancreas, unspecified; I48.92 Unspecified atrial flutter; I48.20 Chronic atrial fibrillation, unspecified; N18.9 Chronic kidney disease, unspecified; E11.22 Type 2 diabetes mellitus with diabetic chronic kidney disease; I08.1 Rheumatic disorders of both mitral and tricuspid valves; D63.1 Anemia in chronic kidney disease; I25.10 Atherosclerotic heart disease of native coronary artery without angina pectoris; E03.9 Hypothyroidism, unspecified; I46.9 Cardiac arrest, cause unspecified; Z66 Do not resuscitate; I95.9 Hypotension, unspecified